=== PATIENT | female | born 1990 | race Caucasian/White ===

== ENCOUNTER 2017-05-04 05:06 | Observation (INO) | payer SELFPAY ==
[~2017-05-04] VITALS: Ht 160 cm
--- NOTE | ~2017-05-04 | ER ---
PATIENT'S NAME: MELISSA SCOTT [facility] AGE: 27 Y [address] ROOM: [id number] [place], [place] [address] LOCATION: [facility] ADMIT DATE: 05/04/2017 ER/Outpatient Report DISCHARGE DATE: FAMILY PHYSICIAN: Alexander Mccoy MD ATTENDING PHYSICIAN: Neto Sierra HISTORY OF PRESENT ILLNESS: Melissa Scott is a 27-year-old female at 19 weeks gestation who was here for Dr. Szymanski, general surgeon. She was sent from [place] for abdominal pain, rule out appendicitis. She developed abdominal pain at 10 p.m., worse on the right side. She was evaluated in [place] with a white count of 20,000 and a negative UA, so she was transferred here for further evaluation. She describes her pain as diffuse, but more on the right side. She has had some bleeding vaginally the last week and has been on bed rest for that. She was evaluated by Dr. Szymanski. An ultrasound of her right lower quadrant was negative for appendicitis. Ki Butler evaluated her in the emergency room and ordered an MRI, and she was to be admitted per General surgery. Her MRI did not show any appendicitis. So at that point, it was recommended for her OB doctor to get involved. So I did contact Dr. Sierra. I evaluated the patient. Vital signs have been stable. She has some generalized abdominal discomfort that has required morphine for pain. She has no longer had any vaginal bleeding. heart tones were audible at 150. Labs were reviewed from [place] with a white count of 20,000. I did order chemistries here. Sodium 140, potassium 3.5, chloride 111, CO2 21, BUN 6, creatinine 0.3, blood sugar 88. Liver enzymes are normal. Amylase and lipase are normal. Ultrasound of her pelvis and right lower quadrant, no free fluid, intrauterine . No ultrasound findings of appendicitis. OB ultrasound was then ordered, live single intrauterine gestation with mean ultrasound age of 19 weeks. Amniotic fluid volume is normal. Placenta is anterior. Heart rate doubled at 128. No other abnormalities noted. MRI: No MRI findings of acute appendicitis identified; intrauterine . IMPRESSION: 1. Intrauterine at 19 weeks gestation. 2. Abdominal pain, right greater than left. 3. Leukocytosis. 4. Vaginal bleeding last week, currently resolved. PLAN: For observation and admission per Dr. Sierra with surgical consultation. PATIENT'S NAME: MELISSA SCOTT [facility] AGE: 27 Y [address] ROOM: [place] [address] LOCATION: [facility] ADMIT DATE: 05/04/2017 ER/Outpatient Report DISCHARGE DATE: FAMILY PHYSICIAN: Alexander Mccoy MD ATTENDING PHYSICIAN: Neto Sierra GALILEO DORAN MD CAR/modl /[id number] d: 05/04/17 1710 t: 05/05/17 0609, OUTPATIENT REPORT
--- NOTE | ~2017-05-04 | HP ---
PATIENT'S NAME: SAMY DANIEL [facility] AGE: 27 Y [address] ROOM: [place] [address] LOCATION: [facility] ADMIT DATE: 05/04/2017 History & Physical DISCHARGE DATE: FAMILY PHYSICIAN: Alexander Mccoy MD ATTENDING PHYSICIAN: Kimo Colvin DATE OF SERVICE: 05/04/2017 PRINCIPAL DIAGNOSES: 1. Abdominal pain. 2. 19 weeks . 3. Rule out acute appendicitis. HISTORY: The patient is a 27-year-old female, who noted the onset of abdominal pain that started approximately 10:00 p.m. last evening. The pain steadily got worse, prompting her presentation to her local hospital. Her labs were drawn there, which revealed a white count of 20,000. She was referred to us for further evaluation. On arrival here, she is awake and alert, hemodynamically stable, complaining of diffuse abdominal pain but more severe in the right lower quadrant. PAST MEDICAL HISTORY: None. PAST SURGICAL HISTORY: Sequelae needing for breast biopsy. MEDICATIONS: None. ALLERGIES: NONE. SOCIAL HISTORY: She does smoke half a pack per day. She drinks socially but not during the . Denies any other substance abuse. REVIEW OF SYSTEMS: Noncontributory, otherwise as noted in history and physical examination. PHYSICAL EXAMINATION: GENERAL: She is a well-developed, well-nourished, female, in moderate discomfort. HEENT: Pupils equal, round, and reactive to light. PATIENT'S NAME: SAMY DANIEL [facility] AGE: 27 Y [address] ROOM: [place] [address] LOCATION: [facility] ADMIT DATE: 05/04/2017 History & Physical DISCHARGE DATE: FAMILY PHYSICIAN: Alexander Mccoy MD ATTENDING PHYSICIAN: Kimo Colvin LUNGS: Clear. HEART: Regular rate and rhythm. ABDOMEN: with diffuse tenderness all over but more localized in the right lower quadrant. EXTREMITIES: Warm. Pulses are intact. LABORATORY DATA: From the outside hospital revealed a white count of 20,000, hemoglobin of 11.0, hematocrit of 31.7, platelet count of 297,000. Urinalysis was negative for infection and further negative for UTI. ASSESSMENT AND PLAN: This is a 27-year-old female with acute-onset abdominal pain that started last evening, that is diffuse but localized more to the right lower quadrant. The patient has a history of vaginal bleeding, has been on bed rest for the vaginal bleeding for the past 2 weeks. She thinks she did not have any bleeding recently. Because of this history of bleeding, I am going to get an ultrasound of her abdomen to confirm the diagnosis of acute appendicitis and then proceed from there. I explained to the patient and family my concern and the reason for getting the ultrasound. We have contacted the mechanical facilities technician and it should be done shortly. The patient on the plan for her admission and ultrasound followed by a possible surgery. MD MARIANO CHRISTIAN/grace /[id number] D: T: [id number] HISTORY & PHYSICAL
--- NOTE | ~2017-05-04 | HP ---
PATIENT'S NAME: SAMY DANIEL [facility] AGE: 27 Y [address] ROOM: [address] [address] LOCATION: [facility] ADMIT DATE: 05/04/2017 History & Physical DISCHARGE DATE: FAMILY PHYSICIAN: Alexander Mccoy MD ATTENDING PHYSICIAN: Neto Wilson DATE OF SERVICE: CHIEF COMPLAINT: Right-sided abdominal pain. HISTORY OF PRESENT ILLNESS: The patient is a 27-year-old 1, para 0 white female with an EDC of 09/29/2017. She is currently about 18 weeks and 6 days. 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 This was seen on her last ultrasound dated 04/22/2017. The patient was doing relatively well until about 10 o'clock last night when she had the onset of abdominal pain, which then became more right-sided. She went to her local ER and was transferred here for evaluation by Surgery for possible appendicitis. They initially did ultrasound and then followed it up with an MRI, both of which did not show any signs of appendicitis. She did have an elevated white blood cell count of 20,000. Dr. Browning was involved, and he asked me to go ahead and admit the patient as at this point in time it is not looking like it is actually an appendicitis. Her pain is improving. She denies any fevers or chills. She does have a good appetite. ALLERGIES: NONE KNOWN. CURRENT MEDICATIONS: 1. vitamins. 2. She currently had a one time dose of fluconazole for yeast vaginitis. PREVIOUS SURGERIES: History of a right breast biopsy on 03/07/2015, which showed fibrocystic disease with atypia and it was an intraductal papilloma. FAMILY HISTORY: Family history is remarkable for a maternal great grandmother with colon cancer; 2 maternal great aunts with breast cancer; cancer of the lung in a maternal grandmother, a maternal uncle, and also an uncle; and diabetes mellitus in maternal grandfather. SOCIAL HISTORY: The patient does smoke about a half a pack of cigarettes a day. She drank PATIENT'S NAME: SAMY DANIEL [facility] AGE: 27 Y [address] ROOM: [address] [address] LOCATION: [facility] ADMIT DATE: 05/04/2017 History & Physical DISCHARGE DATE: FAMILY PHYSICIAN: Alexander Mccoy MD ATTENDING PHYSICIAN: Neto Wilson prior to , but does not drink during . She denies illicit drug use. PHYSICAL EXAMINATION: GENERAL: Shows an alert female, in no acute distress. HEENT: Normal. LUNGS: Clear. HEART: Regular rate and rhythm. ABDOMEN: Shows uterus consistent with about a 19- to 20-week size. There are good heart tones. She has tenderness mostly on the right side of the uterine region. There is no guarding or rebound. Left side is mildly tender. Inguinal exam shows no lymphadenopathy. EXTREMITIES: Negative. LABORATORY AND DIAGNOSTIC DATA: From the patient's OB chart, I did get that she is O positive, antibody screen negative, hepatitis B surface antigen negative, RPR nonreactive, HIV negative, rubella immune. Today, she had a history of a CBC that was 20,000. Her chemistry panel was normal. Amylase and lipase normal. Ultrasound normal other than signs of intrauterine gestation. MRI showed no evidence of appendicitis. An ultrasound OB did show the patient's due date consistent with 09/28/2017. No other abnormalities were noted. ASSESSMENT: 1. Right-sided abdominal/uterine pain. 2. History of subchorionic hemorrhage, stable. 3. Leukocytosis with a history of a white count of 20,000. 4. EDC of 09/29/2017, which makes her 18 weeks and 6 days. PLAN: I discussed the patient with Dr. Browning. They do not think that this is a surgical abdomen or that it is her appendix. We are going to monitor her. We will continue IV fluids, pain and nauseousness medicines as needed. I am going to check a UA on her, and we will also repeat a blood count in the morning. We will follow along. Obviously, if her situation changes, we will address things as needed. NETO WILSON MD AWAN/modl PATIENT'S NAME: SAMY DANIEL [facility] AGE: 27 Y [address] ROOM: [place] [address] LOCATION: [facility] ADMIT DATE: 05/04/2017 History & Physical DISCHARGE DATE: FAMILY PHYSICIAN: Alexander Mccoy MD ATTENDING PHYSICIAN: Neto Wilson /[id number] D: [id number] T: 809 HISTORY & PHYSICAL
[2017-05-04 10:22] LABS: ALBUMIN 2.9 gm/dL (3.5-5.0); ALK PHOS 85 IU/L (33-138); ALT 35 IU/L (12-78); ANION GAP 11.5 (10.0-19.0); AST 20 IU/L (10-40); BLOOD UREA NITROGEN 6 mg/dL (6-24); CALCIUM 8.5 mg/dL (8.5-10.5); CHLORIDE 111 mMol/L (96-110); CO2 21 mMol/L (22-32); CREATININE 0.3 mg/dL (0.5-1.1); POTASSIUM 3.5 mMol/L (3.7-5.1); SODIUM 140 mMol/L (135-145); TOTAL BILIRUBIN 0.3 mg/dL (0.0-1.5); TOTAL PROTEIN 6.3 g/dL (6.0-8.4)
[2017-05-04] MEDS ORDERED: PRENATAL 1+1)(P1 TAB PO (11:26)
[2017-05-04 16:10] LABS: BILIRUBIN URINE NEGATIVE (NEGATIVE); BLOOD URINE NEGATIVE /UL (NEGATIVE); COLOR URINE YELLOW (YELLOW); GLUCOSE URINE NEGATIVE (NEGATIVE); KETONE URINE NEGATIVE (NEGATIVE); LEUKOCYTES URINE NEGATIVE /UL (NEGATIVE); NITRITE URINE NEGATIVE (NEGATIVE); PROTEIN URINE NEGATIVE (NEGATIVE); TURBIDITY URINE CLEAR (CLEAR); UROBILINOGEN URINE NORMAL (NORMAL)
[2017-05-05 05:45] LABS: BASOPHIL % 0.4 %; EOSINOPHIL # 0.2 K/uL (0.0-0.5); EOSINOPHIL % 1.5 %; HEMATOCRIT 30.3 % (33.0-46.0); IMMATURE GRANULOCYTE # 0.1 K/uL (0.0-0.3); IMMATURE GRANULOCYTE % 0.5 %; LYMPHOCYTE # 2.6 K/uL (0.8-4.0); LYMPHOCYTE % 24.2 %; MCH 29.6 pg (27.0-34.0); MCV 89.6 fl (83.0-98.0); MONOCYTE # 0.7 K/uL (0.0-1.0); MONOCYTE % 6.1 %; NEUTROPHIL # (ANC) 7.3 K/uL (1.8-7.8); NEUTROPHIL % 67.3 %; NRBC % 0 /100WBC (0-0.00); PLATELET COUNT 274 K/uL (150-450); RBC 3.38 M/uL (3.50-5.00); RDW-CV 13.4 % (11.9-14.6); WBC 10.8 K/uL (4.0-11.0)
== END 2017-05-05 12:45 | disposition disaster alternative care site (69) ==
LOC: GMED 05:06 → GOBS 07:05
PROVIDERS: Family Medicine; ADMIT Obstetrics & Gynecology Obstetrics
DX: O99.89 Other specified diseases and conditions complicating pregnancy, childbirth and the puerperium (principal); R10.31 Right lower quadrant pain; O99.112 Other diseases of the blood and blood-forming organs and certain disorders involving the immune mechanism complicating pregnancy, second trimester; D72.829 Elevated white blood cell count, unspecified; F17.210 Nicotine dependence, cigarettes, uncomplicated; Z3A.19 19 weeks gestation of pregnancy
CPT/HCPCS: G0463; J2270; J3480